=== PATIENT | female | born 1935 | race American Indian/Alaskan Native ===

== ENCOUNTER 2016-07-25 06:42 | Day surgery (SDC) | payer MEDICARE, OTHER ==
[~2016-07-25 06:42] MED LIST: ADRENALIN IR ONE; TETCAINE OD PRN
[2016-07-25] MEDS ORDERED: TETRACAINE 0.5% OU PRN (07:33)
[2016-07-25] MEDS ORDERED: TETRACAINE 0.5% OD PRN (07:34)
--- NOTE | 2016-07-25 07:57 | Anesthesia Day of Surgery ---
Anesthesia Day of Surgery - Day of Surgery Patient Examined: Yes Patient H&P Reviewed: Yes Patient is NPO: Yes Beta Blockers: Yes
--- NOTE | 2016-07-25 07:57 | Anesthesia Consultation ---
Anesthesia Consult and Med Hx Date of service: 07/25/16 - Airway Anesthetic Teeth Evaluation: Partials ROM Head & Neck: Adequate Mental/Hyoid Distance: Adequate Mallampati Class: Class III Intubation Access Assessment: Possibly Difficult - Pulmonary Exam CTA: Yes - Cardiac Exam Cardiac Exam: RRR - Pre-Operative Health Status ASA Pre-Surgery Classification: ASA3 Proposed Anesthetic Plan: MAC - Pulmonary Hx Asthma: Yes - Cardiovascular System Hx Hypertension: Yes (FOR 20+ YRS) Hx Heart Murmur: Yes Hx Peripheral Vascular Disease: Yes - Central Nervous System Hx Neuromuscular Disorder: (arthritis - hands and legs) Hx Psychiatric Problems: No - Other Systems Hx Cancer: No
[2016-07-25] MEDS: VIGAMOX OD SCH ×3 (08:05→08:15)
[2016-07-25] MEDS: AK-Dilate OD SCH ×3 (08:05→08:15)
[2016-07-25] MEDS: MYDRIACYL OD SCH ×3 (08:05→08:15)
[2016-07-25] MEDS ORDERED: VERSED ONE (09:01)
[2016-07-25] MEDS ORDERED: SUBLIMAZE ONE (09:01)
[2016-07-25] MEDS ORDERED: ADRENALIN IR ONE (10:03)
--- NOTE | 2016-07-25 10:13 | Short Stay Summary ---
Short Stay Documentation Date of service: 07/25/16 - History H&P: obtained from office - Allergies and Medications Current Medications: Allergies iodine Adverse Reaction (Verified 07/17/16 16:24) Hives soy Adverse Reaction (Verified 07/17/16 16:24) Swelling Sulfa (Sulfonamide Antibiotics) Adverse Reaction (Verified 07/17/16 16:24) Swelling GRAINS Adverse Reaction (Uncoded 07/17/16 16:24) Swelling Home Medications Medication Instructions Recorded Confirmed Last Taken Type Furosemide [Lasix] 1 tab PO DAILY 09/29/13 07/25/16 07/23/16 History Metoprolol Xl [Metoprolol 1 tab PO DAILY 09/29/13 07/25/16 07/25/16 History SUCCINATE ER TAB] [place]-3 Fatty Acids [Fish Oil] 1 cap PO DAILY 09/29/13 07/25/16 07/22/16 History Potassium Chloride [Potassium 1 tab PO DAILY 09/29/13 07/25/16 07/22/16 History Chloride] Ubidecarenone [Coq-10] 1 cap PO DAILY 09/29/13 07/25/16 07/22/16 History ALBUTEROL Inhaler [Proair] 2 puff IH QID PRN 07/02/16 07/17/16 3 Months Ago History Digestive Enzymes Combo No.7 1 each PO QDAY 07/02/16 07/25/16 07/22/16 History [Superior Digestive Enzyme] Losartan/Hydrochlorothiazide 1 each PO QDAY 07/02/16 07/25/16 07/22/16 History [Losartan-Hctz 50-12.5 mg Tab] Active Medications Moxifloxacin HCl (Vigamox) 1 drops OD Q5MIN ZAK Stop: 07/27/16 00:02 Last Admin: 07/25/16 08:15 Dose: 1 drops Phenylephrine HCl (Ak-Dilate) 1 drops OD Q5M ZAK Last Admin: 07/25/16 08:15 Dose: 1 drops Tetracaine HCl (Tetracaine 0.5%) 1 drops OD Q5M PRN PRN Reason: Anesthesia Stop: 07/25/16 16:00 Last Admin: 07/25/16 08:05 Dose: 1 drops Tropicamide (Mydriacyl) 1 drops OD Q5MIN ZAK Stop: 07/27/16 00:02 Last Admin: 07/25/16 08:15 Dose: 1 drops - Brief post op/procedure progress note Date of procedure: 07/25/16 Pre-op diagnosis: cataract right eye Post-op diagnosis: same Procedure: Phacoemulsification with intraocular lens insertion right eye Anesthesia: MAC Surgeon: CHULA AGUIRRE Estimated blood loss: none Pathology: none Condition: stable - Disposition Condition at discharge: Good Disposition: DISCHARGED TO HOME OR SELFCARE - Discharge Diagnoses (1) Cataract Status: Resolved
--- NOTE | 2016-07-25 10:14 | Operative Report ---
Operative Report Operative Report: PATIENT'S NAME: DATE OF : DATE OF SURGERY: 07/25/2016 PREOPERATIVE DIAGNOSIS: Cataract right eye POSTOPERATIVE DIAGNOSIS: Same OPERATIVE PROCEDURE: Phacoemulsification with intraocular lens implantation, right eye SURGEON: Shabana Scott M.D. [employer] SURGEON: Yoselin Lens: AO60 20.0 D ANESTHESIA: Monitored anesthesia care in combination with topical and intracameral anesthesia because of the established specific risk of reflux, arrhythmias, or anxiety attacks associated with ocular manipulation, as well as the difficulty of the waste hand to manage such potentially catastrophic events while simultaneously attempting to complete the surgical procedure and was deemed necessary for the patient's safety to have an Sales Training Representative present during the procedure whenever possible. An Sales Training Representative was utilized to regulate the intravenous sedation of the patient so the patient was cooperative yet not asleep in order for the patient to successfully maintain fixation of the eye on the operating light of the microscope. COMPLICATIONS: [No surgical complications] No blood loss. ALLERGIES: Iodine sulfa slowly PROGNOSIS: Excellent INDICATIONS FOR SURGERY: The patient is undergoing surgery in the hopes of eliminating or improving these visual difficulties. PROCEDURE: After arriving at the surgery center, the patient was given topical anesthetic and dilating drops, as noted in the record. The patient was then taken into the operating room and given more anesthetic drops. The eyelids , lashes, and lid margins were scrubbed with Betadine solution, and the patient was draped. The Nurse Sales Training Representative administered IV sedation and monitored the patient during the procedure. The eye was then fixated with a 0.12, and a stab incision was made in the peripheral clear cornea into the anterior chamber. This was made on my left side. Viscoelastic was next used to fill the anterior chamber. The eye was once again fixated with the 0.12 forceps and a keratome was used make an incision in clear cornea peripherally on my right hand side temporally. The capsule forceps were used to open the central anterior capsule and then make a continuous round capsulotomy. Hydrodissection was carried out utilizing a cannula and balanced salt solution to delineate the cortical material from the capsule and the nucleus from the cortical material. The phaco tip was introduced into the eye and used to remove the anterior cortical material in the area of the capsulotomy. Then the phaco tip was buried into the nucleus, and a chopping instrument was introduced into the eye and used to provide countertraction in the nucleus between this instrument and the phaco tip fracturing the nucleus. This procedure was repeated multiple times, providing multiple small segments of the lens, and then the phaco tip was used to remove each of these segments. An I/A tip was then used to remove the remaining cortex. The anterior chamber was refilled with viscoelastic. An one-piece, acrylic intraocular lens was then placed into an inserting cartridge. The tip of the inserting cartridge was introduced into the keratome incision and into the anterior chamber. The implant was gently advanced through the cartridge and into the eye, where it unfolded, and both haptics were placed in the capsular bag, where it centered nicely and appeared to be well fixated. After placement of the intraocular lens, the I~and~A handpiece was placed back into the eye and used to remove the viscoelastic, including viscoelastic that was behind the optic of the intraocular lens. The anterior chamber was then filled with balanced salt solution, and hydration of the wound was used to cause swelling of the wound and more appropriate watertight closure. When the wound was found to be firm, the patient was asked to comment on how bright the light was. If there was no light perception at all or if the light was substantially dimmer than during the rest of the surgery, the amount of fluid in the eye was decompressed to lower the intraocular pressure until the patient could see the bright light again. This was done to avoid any damage or decreased blood flow to the optic nerve. MEDICATIONS APPLIED AT END OF SURGERY: One drop of Pred Forte and Vigamox The patient was given a shield to wear at night and was instructed not to rub or push on the eye. DISCHARGE SUMMARY: The patient was released in stable condition. The patient and those with the patient were given a written sheet of postoperative instructions and counseling on any abnormal laboratory studies. The patient is to see us tomorrow for follow-up in the office and is to call immediately for any difficulties. Shabana Scott M.D. Date
[2016-07-25] MEDS ORDERED: PRED FORTE 1% OD SCH (11:00)
[2016-07-25 11:29] VITALS: BP 153/81
--- NOTE | 2016-07-25 14:35 | Post Anesthesia Evaluation ---
- Post Anesthesia Evaluation Patient Participated: Yes Airway Patent: Yes Stable Respiratory Function: Yes Temp > 96.8F: Yes Pain Manageable: Yes Adequeate Hydration: Yes Anesthesia Complications: No Block Receding Appropriately: Not Applicable
== END 2016-07-25 11:21 | disposition home or self-care (01) ==
LOC: OR 06:42
DX: H26.9 Unspecified cataract (principal); I25.10 Atherosclerotic heart disease of native coronary artery without angina pectoris; E03.9 Hypothyroidism, unspecified; I11.0 Hypertensive heart disease with heart failure; M13.89 Other specified arthritis, multiple sites; E78.00 Pure hypercholesterolemia, unspecified; J45.909 Unspecified asthma, uncomplicated; K21.9 Gastro-esophageal reflux disease without esophagitis; Z86.010 Personal history of colon polyps; Z90.49 Acquired absence of other specified parts of digestive tract; Z98.42 Cataract extraction status, left eye; Z98.890 Other specified postprocedural states; Z86.79 Personal history of other diseases of the circulatory system
CPT/HCPCS: 66984; J0171; J2250; J3010; V2632

== ENCOUNTER 2017-11-07 08:47 | Outpatient (CLI) | payer MEDICARE, OTHER | END 2017-11-07 08:48 | disposition home or self-care (01) | LOC: LABHHL 08:47 | PROVIDERS: ATTEND Specialist | DX: C50.411 Malignant neoplasm of upper-outer quadrant of right female breast (principal) | CPT/HCPCS: 88305; 88342; 88361 ==

== ENCOUNTER 2017-11-25 10:20 | Outpatient (CLI) | payer MEDICARE, OTHER ==
--- NOTE | 2017-11-26 13:31 | Magnetic Resonance Report ---
BILATERAL BREAST MRI WITHOUT AND WITH CONTRAST: 11/25/17 10:20:00 CLINICAL: Newly diagnosed right breast cancer. Status post right stereotactic needle biopsy on 11/20/17 with a pathologic diagnosis of invasive carcinoma NOS with overall grade 2. COMPARISON:09/10/17 and 10/02/17 mammograms.. TECHNIQUE: Axial 1.0-mm T1 without, axial high resolution 2.0-mm T2 and axial 1.0-mm dynamic Vibrant high-resolution postcontrast T1 fat saturation sequences on a 1.5 Teresa magnet. The examination was performed with an 8 channel dedicated [place] breast coil. Post processing with CAD and subtraction was performed on an [employer] workstation. 20 cc of Multihance was injected for the contrast portion of the exam. Consent was obtained prior to the administration of the contrast. FINDINGS: Right: Minimal background parenchymal enhancement. The known cancer is an irregular enhancing mass at 2 o'clock 7 cm from the nipple measuring 12.4 x 9.2 x 6.4 mm. It demonstrates heterogeneous enhancement with mixed kinetics, 140% peak enhancement and 55% type III washout. A biopsy clip is identified at the margin of the mass. No other mass or suspicious enhancement. No suspicious right axillary or right internal mammary lymph nodes. Left: Minimal background parenchymal enhancement. No mass or suspicious enhancement. No suspicious left axillary or left internal mammary lymph nodes. IMPRESSION: 1. A known 12.4 mm right breast cancer and no additional suspicious lesion of either breast. 2. No suspicious lymph nodes. BI-RADS 6 -- Known Cancer
== END 2017-11-25 10:21 | disposition home or self-care (01) ==
LOC: SPVIMAG 10:20
PROVIDERS: ATTEND Surgery
DX: C50.411 Malignant neoplasm of upper-outer quadrant of right female breast (principal)
CPT/HCPCS: A9577; C8908; 77059

== ENCOUNTER 2017-12-31 06:34 | Day surgery (SDC) | payer MEDICARE, OTHER ==
[2017-12-31] MEDS ORDERED: NACL BACTERIOSTATIC INFILTRATI ONE (06:49)
[2017-12-31] MEDS ORDERED: ANCEF/STERILE WATER 2 GM/20 ML IV NR (07:00)
[2017-12-31] MEDS ORDERED: XYLOCAINE 1% 20 mL INFILTRATI NR (08:00)
[2017-12-31] MEDS ORDERED: LACTATED RINGERS 1,000 ML ONE (08:01)
[2017-12-31] MEDS ORDERED: DILAUDID ONE (08:21)
[2017-12-31] MEDS ORDERED: SUBLIMAZE ONE ×2 (08:21→08:45)
[2017-12-31] MEDS ORDERED: DIPRIVAN 10 MG/ML IV ONE (08:22)
[2017-12-31] MEDS ORDERED: ZEMURON IV ONE (08:24)
[2017-12-31] MEDS ORDERED: NACL P/F VIAL (10 ML) 10 ML ONE (08:24)
[2017-12-31] MEDS ORDERED: ARTIFICIAL TEARS OPHTH OINT ONE (08:27)
[2017-12-31] MEDS ORDERED: XYLOCAINE MPF 2% ONE (08:27)
[2017-12-31] MEDS ORDERED: DECADRON ONE ×2 (08:30→10:19)
[2017-12-31] MEDS ORDERED: NAROPIN O.5% ONE (08:44)
[2017-12-31] MEDS ORDERED: VERSED ONE (08:44)
[2017-12-31] MEDS ORDERED: LACTATED RINGERS 1,000 ML IV SCH (09:00)
[2017-12-31] MEDS ORDERED: WATER FOR IRRIG STERILE IR ONE (09:35)
--- NOTE | 2017-12-31 09:45 | Operative Report ---
Operative Report Operative Report: Date of Service: December 31, 2017 Preoperative diagnosis: Right breast cancer of the upper inner quadrant Postoperative diagnosis: Same Procedure: Right needle localization partial mastectomy of the upper inner quadrant and SLNB Surgeon: Rosie Bunch MD Dye Tub Tender: GHAZALA Mckeon Anesthesia: General Findings: Right wire and clip present within radiograph specimen; x3 SLNs Complications: None EBL: Minimal Disposition: PACU in good condition Indications for operative procedure: This is an 82 year old lady with newly diagnosed right breast cancer of the upper inner quadrant, Stage I [id number] ER/ MA positive. Recommendations are to proceed with breast conservation. Genetic testing negative for any significant gene mutation. Patient wished to proceed with the above procedure. Procedure in detail: The patient was taken to radiology for wire placement for localization known area of cancer. Patient was then taken to the operating room. Gen. anesthesia was administered. The right nipple was injected with radioisotope. The right breast and axilla were prepped and draped in the normal sterile operative fashion. The wire was identified. Timeout was performed. Gamma probe was inserted into the axilla. The area of hot spot was identified. A right axillary incision was made with a 15 blade knife with dissection taken down to the subcutaneous tissues. The axillary fascia was opened with the Bovie cautery. 3 SLNS were identified. All remaining counts were less than 10% of the highest count. Lymph nodes were sent to pathology for permanent processing. Hemostasis was obtained in the left axillary cavity. Axillary cavity was appropriately irrigated and suctioned. Hemostasis was noted. Axillary fascia was approximated and closed using interrupted 3-0 Vicryl and the skin brought together and closed using a running 4-0 Monocryl followed by skin affix. Attention was then taken towards the right breast. An upper inner quadrant breast incision was made with a 15 blade knife and dissection taken down to subcutaneous tissues. First began raising of the lateral flap with removal of the wire from the skin with dissection take down to the pectoralis muscle, followed by raising of the medial flap, superior flap and inferior flap with all flaps taken down to the pectoralis muscle. The breast area of concern was appropriately removed posteriorly from the pectoralis muscle with the aid of the Bovie cautery. The wire was not encountered. Specimen was marked and then sent to pathology and radiology; radiograph specimen with wire and clip present. Breast cavity was irrigated and hemostasis was obtained. The posterior deep breast tissues were approximated and closed using interrupted 3-0 Vicryl. The subcutaneous tissues were approximated and closed using interrupted 3-0 Vicryl followed by closing of the skin with a running 4-0 Monocryl and skin affix. The patient tolerated surgery very well and she was awaken from anesthesia without any complication and transported to PACU in good condition.
--- NOTE | 2017-12-31 09:48 | Short Stay Summary ---
Short Stay Documentation Date of service: 12/31/17 - History H&P: obtained from office - Allergies and Medications Current Medications: Allergies codeine Allergy (Verified 12/29/17 14:46) Swelling iodine Adverse Reaction (Verified 12/29/17 14:46) Hives soy Adverse Reaction (Verified 12/29/17 14:46) Swelling Sulfa (Sulfonamide Antibiotics) Adverse Reaction (Verified 12/29/17 14:46) Swelling GRAINS Adverse Reaction (Uncoded 07/17/16 16:24) Swelling Home Medications Medication Instructions Recorded Confirmed Last Taken Type Potassium Chloride 1 tab PO DAILY 09/29/13 12/31/17 07/22/16 History RX: Metoprolol Xl [Metoprolol 1 tab PO DAILY 09/29/13 12/31/17 12/30/17 12:00 History SUCCINATE ER TAB] RX: [place]-3 Fatty Acids [Fish Oil] 1 cap PO DAILY 09/29/13 12/31/17 12/30/17 12: 00 History Ubidecarenone [Coq-10] 1 cap PO DAILY 09/29/13 12/31/17 12/30/17 12:00 History ALBUTEROL Inhaler [Proair] 2 puff IH QID PRN 07/02/16 12/31/17 3 Months Ago History ~04/04/16 Digestive Enzymes Combo No.7 1 each PO QDAY 07/02/16 12/31/17 12/30/17 12:00 History [Superior Digestive Enzyme] Losartan/Hydrochlorothiazide 1 each PO QDAY 07/02/16 12/31/17 12/30/17 12:00 History [Losartan-Hctz 50-12.5 mg Tab] Active Medications Cefazolin Sodium (Ancef/Sterile Water 2 Gm/20 Ml) 2 gm IV PREOP NR Stop: 12/31/17 23:45 Lactated Ringer's (Lactated Ringers) 1,000 mls @ 75 mls/hr IV DIRECT ZAK Last Admin: 12/31/17 08:30 Dose: 75 mls/hr Lidocaine (Xylocaine 1% 20 Ml) 20 ml INFILTRATI ONCE NR Stop: 12/31/17 20:00 - Brief post op/procedure progress note Date of procedure: 12/31/17 Pre-op diagnosis: Right breast cancer of the upper inner quadrant Post-op diagnosis: same Procedure: Right needle localization partial mastectomy and SLNB Anesthesia: GETA Findings: Wire and clip present within radiograph specimen; x SLNs Surgeon: MADELINE BRANDON High Pressure Cleaner: SANDRA SON Estimated blood loss: minimal Pathology: list (right partial mastectomy; x3 SLNs) Specimen disposition: to lab Condition: stable - Disposition Condition at discharge: Good Disposition: DC-01 TO HOME OR SELFCARE Short Stay Discharge Plan Activity: other (no heavy lifting) Diet: regular Wound: other (keep incisions clean and dry; may shower in 24 hours; no baths, pools or lakes; wear breast binder for 48 hours and may wear supportive sports bra) Follow up with: RAMON MCKENNA MD [Primary Care Provider] - 7 Days MADELINE BRANDON MD [Staff Physician] - 7 Days Prescriptions: traMADol [Ultram 50 MG tab] 50 mg PO Q6HR PRN #30 tablet PRN Reason: Pain
[2017-12-31] MEDS ORDERED: TORADOL IV PRN (10:00)
[2017-12-31] MEDS ORDERED: ZOFRAN IV PRN (10:00)
--- NOTE | 2017-12-31 10:00 | Anesthesia Consultation ---
Anesthesia Consult and Med Hx Date of service: 12/31/17 - Airway Anesthetic Teeth Evaluation: Good ROM Head & Neck: Adequate Mental/Hyoid Distance: Adequate Mallampati Class: Class I Intubation Access Assessment: Good - Pulmonary Exam CTA: Yes - Cardiac Exam Cardiac Exam: RRR - Pre-Operative Health Status ASA Pre-Surgery Classification: ASA3 Proposed Anesthetic Plan: General - Pulmonary Hx Asthma: Yes - Cardiovascular System Hx Hypertension: Yes (2 YEARS) Hx Heart Murmur: Yes Hx Peripheral Vascular Disease: Yes - Central Nervous System Hx Neuromuscular Disorder: (arthritis - hands and legs) Hx Psychiatric Problems: No - Other Systems Hx Alcohol Use: No Hx Substance Use: No Hx Cancer: Yes
--- NOTE | 2017-12-31 10:00 | Anesthesia Day of Surgery ---
Anesthesia Day of Surgery - Day of Surgery Patient Examined: Yes Patient H&P Reviewed: Yes Patient is NPO: Yes
--- NOTE | 2017-12-31 10:22 | Mammography Report ---
NEEDLE LOCALIZATION AND HOOKWIRE PLACEMENT RIGHT BREAST:12/31/17 CLINICAL: Right breast cancer. COMPARISON: 11/20/17 FINDINGS: Using mammographic guidance, 1% lidocaine local anesthesia and sterile technique, a 7.5-cm Rush hookwire with a needle was placed from a CC from above approach to localize the known cancer with a localizer clip. A lateral image confirmed satisfactory deployment of the hookwire and the needle was removed. The patient tolerated the procedure well and there were no apparent complications. IMPRESSION: Uncomplicated hookwire placement right breast.
--- NOTE | 2017-12-31 12:01 | Mammography Report ---
SPECIMEN RADIOGRAPH RIGHT BREAST: 12/31/17 CLINICAL: Surgical excision of a known cancer with a localizer clip. FINDINGS: The targeted mass, localizer clip and hookwire are identified within the specimen. IMPRESSION: Excision of the targeted lesion.
[2017-12-31] MEDS ORDERED: ZOFRAN ONE (12:08)
[2017-12-31] MEDS: APRESOLINE IV PRN ×2 (12:49→13:32)
[2017-12-31] MEDS ORDERED: NEO SYNEPHRINE/NS Syringe(OR USE) IV ONE (12:54)
[2017-12-31] MEDS ORDERED: ROBINUL ONE (12:54)
[2017-12-31] MEDS: DILAUDID IV PRN ×3 (13:05→13:25)
[2017-12-31] MEDS ORDERED: ULTRAM PO PRN (13:39)
--- NOTE | 2017-12-31 17:01 | Post Anesthesia Evaluation ---
- Post Anesthesia Evaluation Patient Participated: Yes Airway Patent: Yes Stable Respiratory Function: Yes Nausea/Vomiting: No Temp > 96.8F: Yes Pain Manageable: Yes Adequeate Hydration: Yes Anesthesia Complications: No Block Receding Appropriately: Not Applicable Patient on Ventilator: No
[2017-12-31 17:51] VITALS: BP 156/83
== END 2017-12-31 15:38 | disposition home or self-care (01) ==
LOC: OR 06:34
PROVIDERS: ATTEND Surgery
DX: C50.211 Malignant neoplasm of upper-inner quadrant of right female breast (principal); I10 Essential (primary) hypertension; I73.9 Peripheral vascular disease, unspecified; M19.90 Unspecified osteoarthritis, unspecified site; E89.0 Postprocedural hypothyroidism; Z80.3 Family history of malignant neoplasm of breast; Z88.2 Allergy status to sulfonamides; Z88.5 Allergy status to narcotic agent; Z91.041 Radiographic dye allergy status; Z91.018 Allergy to other foods
CPT/HCPCS: 19281; 19301; 38525; 64450; 76098; 78800; 88307; 88333; 88342; A9541; J0360; J0690; J1100; J1170; J1885; J2250; J2370; J2405; J2704; J2795; J3010; J7120

== ENCOUNTER 2018-09-26 16:15 | Inpatient (IN) | payer MEDICARE, OTHER ==
--- NOTE | 2018-09-26 16:32 | Emergency Department Report ---
Chief Complaint: Dizziness Stated Complaint: DIZZY X2DAYS/HYPERTENSION Time Seen by Provider: 09/26/18 16:29 - HPI History of Present Illness: pt c/o dizziness started two days ago pt states it got worse yesterday room spinning feels off balance worse with head movements no N/V/D been diagnosed with vertigo previously no fever, urinary sx BP elevated in triage 181/95 MSE screening note: Focused history and physical exam performed. Due to findings the following was ordered: CT head, labs, EKG ED Disposition for MSE Condition: Stable
[2018-09-26] MEDS ORDERED: ANTIVERT PO ONE (17:19)
[2018-09-26] MEDS ORDERED: CATAPRES PO ONE (17:31)
--- NOTE | 2018-09-26 17:35 | Emergency Department Report ---
HPI - General Chief Complaint: Dizziness Time Seen by Provider: 09/26/18 16:29 - HPI HPI: Room 24 The patient is an 82-year-old female presenting with a chief complaint of dizziness. The patient states she's had dizziness whenever she stands up for the past 3 days. Patient states it feels as though the room was spinning but she cannot recall which direction. Patient denies headache nausea vomiting. Patient denies any recent trauma, fever or pain of any type. The patient states she was diagnosed with vertigo approximately 4-5 years ago and has a prescription for meclizine that was filled May 2018. Location: [See above] Duration: 3 days Quality: Vertigo Severity: Moderate Modifying factors: [see above] Context: [see above] Mode of transportation: [not driving] ED Past Medical Hx - Past Medical History Hx Hypertension: Yes (2 YEARS) Hx Congestive Heart Failure: Yes (IN 1984) Hx Deep Vein Thrombosis: Yes (RIGHT LEG IN 2012) Hx GERD: Yes Hx Arthritis: Yes Hx Asthma: Yes - Surgical History Hx Cholecystectomy: Yes Hx Breast Surgery: Yes (LEFT CYST REMOVAL AND AXILLARY) - Family History Family history: no significant - Social History Smoking Status: Never Smoker Substance Use Type: None - Medications Home Medications: Home Medications Medication Instructions Recorded Confirmed Last Taken Type Metoprolol Xl [Metoprolol 1 tab PO DAILY 09/29/13 12/31/17 12/30/17 12:00 History SUCCINATE ER TAB] [place]-3 Fatty Acids [Fish Oil] 1 cap PO DAILY 09/29/13 12/31/17 12/30/17 12:00 History Potassium Chloride 1 tab PO DAILY 09/29/13 12/31/17 07/22/16 History Ubidecarenone [Coq-10] 1 cap PO DAILY 09/29/13 12/31/17 12/30/17 12:00 History ALBUTEROL Inhaler (OR & NICU) 2 puff IH QID PRN 07/02/16 12/31/17 3 Months Ago History [Proair] ~04/04/16 Digestive Enzymes Combo No.7 1 each PO QDAY 07/02/16 12/31/17 12/30/17 12:00 History [Superior Digestive Enzyme] Losartan/Hydrochlorothiazide 1 each PO QDAY 07/02/16 12/31/17 12/30/17 12:00 History [Losartan-Hctz 50-12.5 mg Tab] traMADol [Ultram 50 MG tab] 50 mg PO Q6HR PRN #30 tablet 12/31/17 Unknown Rx ED Review of Systems ROS: Stated complaint: DIZZY X2DAYS/HYPERTENSION Other details as noted in HPI Constitutional: denies: fever Eyes: denies: eye pain ENT: denies: throat pain Respiratory: no symptoms reported Cardiovascular: denies: chest pain Endocrine: no symptoms reported Gastrointestinal: denies: abdominal pain, nausea Genitourinary: denies: dysuria Musculoskeletal: denies: back pain Neurological: vertigo. denies: headache Physical Exam - Physical Exam Vital Signs: Vital Signs 09/26/18 16:30 Temperature 98 F Pulse Rate 84 Respiratory 20 Rate Blood Pressure 181/95 O2 Sat by Pulse 97 Oximetry Physical Exam: GENERAL: The patient is well-developed well-nourished female lying on stretcher not appearing to be in acute distress. [] HEENT: Normocephalic. Atraumatic. Extraocular motions are intact. Patient has moist mucous membranes. No nystagmus noted NECK: Supple. No meningitic signs are noted. Trachea midline CHEST/LUNGS: Clear to auscultation. There is no respiratory distress noted. HEART/CARDIOVASCULAR: Regular. There is no tachycardia. There is no gallop rub or murmur. ABDOMEN: Abdomen is soft, nontender. Patient has normal bowel sounds. There is no abdominal distention. SKIN: There is no rash. There is no edema. There is no diaphoresis. NEURO: The patient is awake, alert, and oriented. The patient is cooperative. The patient has no focal neurologic deficits. The patient has normal speech. Cranial nerves II through XII grossly intact, no drift. No dysmetria noted with [id number]-ka-hhyy bilaterally MUSCULOSKELETAL: There is no evidence of acute injury. ED Course Vital Signs 09/26/18 16:30 Temperature 98 F Pulse Rate 84 Respiratory 20 Rate Blood Pressure 181/95 O2 Sat by Pulse 97 Oximetry - Reevaluation(s) Reevaluation #1: 09/26/18 19:05 Patient unable to ambulate from bed to exam room door complaining of severe dizziness. Will admit the patient to the hospital for further evaluation ED Medical Decision Making - Lab Data Result diagrams: 09/26/18 17:08 09/26/18 17:08 Laboratory Tests 09/26/18 09/26/18 09/26/18 17:08 17:08 17:08 WBC 5.3 RBC 4.30 Hgb 13.4 Hct 38.3 MCV 89 MCH 31 MCHC 35 H RDW 13.4 Plt Count 251 PT 13.0 INR 0.93 APTT 20.0 L Sodium 140 Potassium 4.2 Chloride 102.9 Carbon Dioxide 25 Anion Gap 16 BUN 10 Creatinine 0.7 Estimated GFR > 60 BUN/Creatinine Ratio 14 Glucose 97 Calcium 9.6 Total Bilirubin 0.50 AST 14 ALT 6 L Alkaline Phosphatase 50 Troponin T < 0.010 Total Protein 7.6 Albumin 4.1 Albumin/Globulin Ratio 1.2 - EKG Data -: EKG Interpreted by [place] EKG shows normal: sinus rhythm Rate: normal - EKG Data When compared to previous EKG there are: previous EKG unavailable Interpretation: nonspecific ST-T wave ilia (T-wave inversion in lead aVL) - Radiology Data Radiology results: report reviewed (CT head), image reviewed (CT head) [place] [address] Cat Scan Report Signed Patient: HUBERT CARR MR#: [id number] : 1935 Acct:[id number] Age/Sex: 82 / F ADM Date: 09/26/18 Loc: ED Attending Dr: Ordering Physician: GHAZALA ROUSSEAU Date of Service: 09/26/18 Procedure(s): CT head/brain wo con Accession Number(s): [id number] cc: GHAZALA ROUSSEAU PROCEDURE: CT HEAD/BRAIN WO CON TECHNIQUE: Axial CT with contrast HISTORY: dizziness COMPARISONS: None FINDINGS: No intracranial hemorrhage, mass effect or hydrocephalus. Mild cerebral volume loss. Areas of mild white matter hypoattenuation are present most commonly associated with chronic ischemic microvascular disease. Atherosclerotic calcifications noted. The calvarium is intact. The imaged paranasal sinuses and mastoids are clear. IMPRESSION: No acute intracranial findings. Mild cerebral volume loss and chronic ischemic microvascular white matter changes. . This document is electronically signed by Cam Chao MD., September 26 2018 05:40:12 PM ET Transcribed By: PAF Dictated By: CAM CHAO MD Electronically Authenticated By: CAM CHAO MD Signed Date/Time: 09/26/18 174 DD/ 08 TD/TT: 09/26/181708 - Differential Diagnosis central vertigo, peripheral vertigo, hypertensive urgency Critical care attestation.: If time is entered above; I have spent that time in minutes in the direct care of this critically ill patient, excluding procedure time. ED Disposition Clinical Impression: Vertigo Disposition: OP ADMIT IP TO THIS HOSP Is pt being admited?: Yes Does the pt Need Aspirin: Yes Condition: Fair Referrals: PRIMARY CARE, [Primary Care Provider] - 3-5 Days Time of Disposition: 19:06 (hospitalist paged (Dr Mcneil))
--- NOTE | 2018-09-26 17:42 | Cat Scan Report ---
PROCEDURE: CT HEAD/BRAIN WO CON TECHNIQUE: Axial CT with contrast HISTORY: dizziness COMPARISONS: None FINDINGS: No intracranial hemorrhage, mass effect or hydrocephalus. Mild cerebral volume loss. Areas of mild white matter hypoattenuation are present most commonly associated with chronic ischemic microvascular disease. Atherosclerotic calcifications noted. The calvarium is intact. The imaged paranasal sinuses and mastoids are clear. IMPRESSION: No acute intracranial findings. Mild cerebral volume loss and chronic ischemic microvascular white matter changes. . This document is electronically signed by Cam Mcgowan MD., September 26 2018 05:40:12 PM ET
[2018-09-26 17:44] LABS: Hematocrit 38.3 % (30.3-42.9); Hemoglobin 13.4 gm/dl (10.1-14.3); Mean Corpuscular HGB Conc 35 % (30-34); Mean Corpuscular Volume 89 fl (79-97); Platelet Count 251 K/mm3 (140-440); Red Cell Distribution Width 13.4 % (13.2-15.2)
[2018-09-26 17:46] LABS: INR 0.93 (0.87-1.13)
[2018-09-26 17:53] LABS: Alanine Aminotransferase 6 units/L (7-56); Albumin 4.1 g/dL (3.9-5); BUN/Creatinine Ratio 14; Blood Urea Nitrogen 10 mg/dL (7-17); Calcium 9.6 mg/dL (8.4-10.2); Hemolysis Index 9
[2018-09-26] MEDS ORDERED: ASPIRIN PO ONE (19:07)
[2018-09-26] MEDS ORDERED: ZOFRAN IV PRN (19:41)
[2018-09-26] MEDS ORDERED: SODIUM CHLORIDE FLUSH SYRINGE 10 ML IV PRN (19:41)
[2018-09-26] MEDS ORDERED: TYLENOL PO PRN (19:41)
[2018-09-26 19:43] LABS: Bacteria,Urine 1+ /HPF (Negative); Bilirubin,Urine NEG (Negative); Blood,Urine NEG (Negative); Color,Urine Yellow (Yellow); Mucus,Urine FEW /HPF; Protein,Urine <15 mg/dL mg/dL (Negative); Urobilinogen,Urine < 2.0 mg/dL (<2.0)
[2018-09-26] MEDS ORDERED: APRESOLINE IV PRN (19:48)
[2018-09-26 20:43] LABS: Total Cells Counted 100
[2018-09-26] MEDS ORDERED: ASPIRIN ONE (20:43)
[2018-09-26 20:44] LABS: Ovalocytes Few; Platelet Estimate Consistent w Auto
[2018-09-26] MEDS ORDERED: VALIUM PO ONE (21:00)
--- NOTE | 2018-09-26 21:41 | History and Physical Report ---
History of Present Illness Date of examination: 09/26/18 Date of admission: 09/26/18 19:41 Chief complaint: Dizziness for the past 3 days And elevated blood pressure History of present illness: Mrs. Iamni Amador is a 82-year-old female presenting with a chief complaint of dizziness. The patient states she's had dizziness whenever she stands up for the past 3 days. Patient feels dizzy when she gets up or turns her head and the dizziness is described as spinning sensation. She denies any fall, loss of consciousness, dysuria. She denies any fever or chills chest pain or shortness of breath. Denies any ear discharge ringing in the ears. She has no history of stroke she denies any history of exertional chest pain palpitations or syncope. Patient denies headache nausea vomiting. Patient denies any recent trauma, The patient states she was diagnosed with vertigo approximately 4-5 years ago . She was also noted to have markedly elevated blood pressure 200 systolic in the ED. Patient is being admitted for further management of her vertigo and hype rtensive urgency Past History Past Medical History: DVT, GERD, hypertension, other (asthma) Past Surgical History: cholecystectomy (thyroid surgery), cataract removal, thyroidectomy Social history: no significant social history Family history: cancer (details not known) Medications and Allergies Allergies Allergy/AdvReac Type Severity Reaction Status Date / Time codeine Allergy Swelling Verified 09/26/18 16:16 iodine AdvReac Hives Verified 09/26/18 16:16 soy AdvReac Swelling Verified 09/26/18 16:16 Sulfa (Sulfonamide AdvReac Swelling Verified 09/26/18 16:16 Antibiotics) GRAINS AdvReac Swelling Uncoded 07/17/16 16:24 Home Medications Medication Instructions Recorded Confirmed Last Taken Type Metoprolol Xl [Metoprolol 1 tab PO DAILY 09/29/13 09/26/18 12/30/17 12:00 Histo ry SUCCINATE ER TAB] [place]-3 Fatty Acids [Fish Oil] 1 cap PO DAILY 09/29/13 09/26/18 12/30/17 12:00 History Potassium Chloride 1 tab PO DAILY 09/29/13 09/26/18 07/22/16 History Ubidecarenone [Coq-10] 1 cap PO DAILY 09/29/13 09/26/18 12/30/17 12:00 History ALBUTEROL Inhaler (OR & NICU) 2 puff IH QID PRN 07/02/16 09/26/18 3 Months Ago History [Proair] ~04/04/16 Digestive Enzymes Combo No.7 1 each PO QDAY 07/02/16 09/26/18 12/30/17 12:00 History [Superior Digestive Enzyme] Losartan/Hydrochlorothiazide 1 each PO QDAY 07/02/16 09/26/18 12/30/17 12:00 History [Losartan-Hctz 50-12.5 mg Tab] traMADol [Ultram 50 MG tab] 50 mg PO Q6HR PRN #30 tablet 12/31/17 09/26/18 Unknown Rx Active Meds: Active Medications Acetaminophen (Tylenol) 650 mg PO Q4H PRN PRN Reason: Pain MILD(1-3)/Fever >100.5/ALEMAN Famotidine (Pepcid) 20 mg PO BID ZAK Heparin Sodium (Porcine) (Heparin) 5,000 unit SUB-Q Q8HR ZAK Hydralazine HCl (Apresoline) 10 mg IV Q6H PRN PRN Reason: Hypertension Losartan Potassium (Cozaar) 100 mg PO DAILY ZAK Meclizine HCl (Antivert) 25 mg PO Q8HR ZAK Metoprolol Succinate (Toprol Xl) 50 mg PO DAILY ZAK Ondansetron HCl (Zofran) 4 mg IV Q8H PRN PRN Reason: Nausea And Vomiting Sodium Chloride (Sodium Chloride Flush Syringe 10 Ml) 10 ml IV BID ZAK Sodium Chloride (Sodium Chloride Flush Syringe 10 Ml) 10 ml IV PRN PRN PRN Reason: LINE FLUSH Review of Systems All systems: negative (12 point review of systems is as stated above in the history of present illness otherwise negative) Exam - Constitutional Vitals: Temp Pulse Resp BP Pulse Ox 97.9 F 73 15 158/81 98 09/26/18 20:18 09/26/18 20:18 09/26/18 20:18 09/26/18 20:18 09/26/18 20:18 General appearance: Present: no acute distress, well-nourished - EENT Eyes: Present: PERRL, EOM intact ENT: hearing intact, clear oral mucosa - Neck Neck: Present: supple, normal ROM. Absent: masses or JVD, carotid bruits - Respiratory Respiratory effort: normal Respiratory: bilateral: CTA - Cardiovascular Rhythm: regular Heart Sounds: Present: S1 & S2 - Extremities Extremities: No edema - Abdominal General gastrointestinal: Present: soft, non-tender. Absent: hepatomegaly, splenomegaly Female genitourinary: Present: deferred - Rectal Rectal Exam: deferred - Integumentary Integumentary: Present: clear - Musculoskeletal Musculoskeletal: strength equal bilaterally - Psychiatric Psychiatric: appropriate mood/affect - Neurologic Neurologic: no focal deficits, other (there is no horizontal or vertical nystagmus,) Results - Labs CBC & Chem 7: 09/26/18 17:08 09/26/18 17:08 Labs: Abnormal lab results 09/26/18 09/26/18 09/26/18 Range/Units 17:08 17:08 17:08 MCHC 35 H (30-34) % Lymphocytes % (Manual) 43.0 H (13.4-35.0) % APTT 20.0 L (24.2-36.6) Sec. ALT 6 L (7-56) units/L Assessment and Plan - Patient Problems (1) Benign positional vertigo Current Visit: Yes Status: Acute Qualifiers: Laterality: bilateral Qualified Code(s): H81.13 - Benign paroxysmal vertigo, bilateral Plan to address problem: Admit the patient There are no signs or symptoms of TIA or stroke CT of the head reviewed UA normal We'll start the patient on meclizine Please consult neurology in a.m. (2) Hypertensive urgency Current Visit: Yes Status: Acute Plan to address problem: Home medications and will start the patient on IV hydralazine as needed (3) History of gastroesophageal reflux (GERD) Current Visit: Yes Status: Chronic Plan to address problem: We will start the patient on oral H2 blockers
[2018-09-26] MEDS: HEPARIN SUB-Q SCH (22:56)
[2018-09-26] MEDS: ANTIVERT PO SCH (22:56)
[2018-09-26] MEDS: PEPCID PO SCH (22:56)
[2018-09-26] MEDS: SODIUM CHLORIDE FLUSH SYRINGE 10 ML IV SCH (23:10)
[2018-09-27] MEDS: HEPARIN SUB-Q SCH ×2 (05:49→13:31)
[2018-09-27] MEDS: ANTIVERT PO SCH ×2 (05:50→13:31)
[2018-09-27 08:47] LABS: BUN/Creatinine Ratio 13; Blood Urea Nitrogen 9 mg/dL (7-17); Calcium 9.3 mg/dL (8.4-10.2); Hemolysis Index 1
[2018-09-27] MEDS: COZAAR PO SCH (10:09)
[2018-09-27] MEDS: SODIUM CHLORIDE FLUSH SYRINGE 10 ML IV SCH (10:10)
[2018-09-27] MEDS: PEPCID PO SCH (10:10)
[2018-09-27] MEDS: TOPROL XL PO SCH (10:10)
[2018-09-27] MEDS ORDERED: ULTRAM PO PRN (16:23)
--- NOTE | 2018-09-27 16:23 | Progress Note ---
Assessment and Plan Assessment and plan: Hypertensive urgency. BP improving Resume home meds Dizziness. Etiology unclear Will get MRI Brain to r/o structural abnormality History of breast cancer Full code status Discussed with patient and daughter at bedside. History Interval history: Dizziness Elevated BP Hospitalist Physical - Physical exam Narrative exam: GEN: Not in acute distress, sitting up in bed, Obese HEENT: Normocephalic, atraumatic, Neck: supple, No JVD Heart:S1 and S2 reg, no murmurs Lungs: Clear to auscultation, no crackles, no wheeze Abd:soft, non tender, non distended, normal bowel sounds Ext: Trace bilat edema, no clubbing, no cyanosis Neuro:Awake,alert,oriented X 3, no focal signs Psych: normal mood - Constitutional Vitals: Temp Pulse Resp BP Pulse Ox 97.6 F 54 L 17 131/74 98 09/27/18 11:48 09/27/18 11:51 09/27/18 11:48 09/27/18 11:48 09/27/18 11:48 General appearance: Present: no acute distress, obese Results - Labs CBC & Chem 7: 09/26/18 17:08 09/27/18 07:00 Labs: Laboratory Last Values WBC 5.3 K/mm3 (4.5-11.0) 09/26/18 17:08 RBC 4.30 M/mm3 (3.65-5.03) 09/26/18 17:08 Hgb 13.4 gm/dl (10.1-14.3) 09/26/18 17:08 Hct 38.3 % (30.3-42.9) 09/26/18 17:08 MCV 89 fl (79-97) 09/26/18 17:08 MCH 31 pg (28-32) 09/26/18 17:08 MCHC 35 % (30-34) H 09/26/18 17:08 RDW 13.4 % (13.2-15.2) 09/26/18 17:08 Plt Count 251 K/mm3 (140-440) 09/26/18 17:08 Add Manual Diff Complete 09/26/18 17:08 Total Counted 100 09/26/18 17:08 Seg Neuts % (Manual) 48.0 % (40.0-70.0) 09/26/18 17:08 Band Neutrophils % 0 % 09/26/18 17:08 Lymphocytes % (Manual) 43.0 % (13.4-35.0) H 09/26/18 17:08 Reactive Lymphs % (Man) 0 % 09/26/18 17:08 Monocytes % (Manual) 5.0 % (0.0-7.3) 09/26/18 17:08 Eosinophils % (Manual) 3.0 % (0.0-4.3) 09/26/18 17:08 Basophils % (Manual) 1.0 % (0.0-1.8) 09/26/18 17:08 Metamyelocytes % 0 % 09/26/18 17:08 Myelocytes % 0 % 09/26/18 17:08 Promyelocytes % 0 % 09/26/18 17:08 Blast Cells % 0 % 09/26/18 17:08 Nucleated RBC % Not Reportable 09/26/18 17:08 Seg Neutrophils # Man 2.5 K/mm3 (1.8-7.7) 09/26/18 17:08 Band Neutrophils # 0.0 K/mm3 09/26/18 17:08 Lymphocytes # (Manual) 2.3 K/mm3 (1.2-5.4) 09/26/18 17:08 Abs React Lymphs (Man) 0.0 K/mm3 09/26/18 17:08 Monocytes # (Manual) 0.3 K/mm3 (0.0-0.8) 09/26/18 17:08 Eosinophils # (Manual) 0.2 K/mm3 (0.0-0.4) 09/26/18 17:08 Basophils # (Manual) 0.1 K/mm3 (0.0-0.1) 09/26/18 17:08 Metamyelocytes # 0.0 K/mm3 09/26/18 17:08 Myelocytes # 0.0 K/mm3 09/26/18 17:08 Promyelocytes # 0.0 K/mm3 09/26/18 17:08 Blast Cells # 0.0 K/mm3 09/26/18 17:08 WBC Morphology Not Reportable 09/26/18 17:08 Hypersegmented Neuts Not Reportable 09/26/18 17:08 Hyposegmented Neuts Not Reportable 09/26/18 17:08 Hypogranular Neuts Not Reportable 09/26/18 17:08 Smudge Cells Not Reportable 09/26/18 17:08 Toxic Granulation Not Reportable 09/26/18 17:08 Toxic Vacuolation Not Reportable 09/26/18 17:08 Dohle Bodies Not Reportable 09/26/18 17:08 Pelger-Huet Anomaly Not Reportable 09/26/18 17:08 Loyd Rods Not Reportable 09/26/18 17:08 Platelet Estimate Consistent w auto 09/26/18 17:08 Clumped Platelets Not Reportable 09/26/18 17:08 Plt Clumps, EDTA Not Reportable 09/26/18 17:08 Large Platelets Not Reportable 09/26/18 17:08 Giant Platelets Not Reportable 09/26/18 17:08 Platelet Satelliting Not Reportable 09/26/18 17:08 Plt Morphology Comment Not Reportable 09/26/18 17:08 RBC Morphology Not Reportable 09/26/18 17:08 Dimorphic RBCs Not Reportable 09/26/18 17:08 Polychromasia Not Reportable 09/26/18 17:08 Hypochromasia Not Reportable 09/26/18 17:08 Poikilocytosis Not Reportable 09/26/18 17:08 Anisocytosis Not Reportable 09/26/18 17:08 Microcytosis Not Reportable 09/26/18 17:08 Macrocytosis Not Reportable 09/26/18 17:08 Spherocytes Not Reportable 09/26/18 17:08 Pappenheimer Bodies Not Reportable 09/26/18 17:08 Sickle Cells Not Reportable 09/26/18 17:08 Target Cells Not Reportable 09/26/18 17:08 Tear Drop Cells Not Reportable 09/26/18 17:08 Ovalocytes Few 09/26/18 17:08 Helmet Cells Not Reportable 09/26/18 17:08 [place] Bodies Not Reportable 09/26/18 17:08 [place] Rings Not Reportable 09/26/18 17:08 [place] Cells Not Reportable 09/26/18 17:08 Bite Cells Not Reportable 09/26/18 17:08 Crenated Cell Not Reportable 09/26/18 17:08 Elliptocytes Not Reportable 09/26/18 17:08 Acanthocytes (Spur) Not Reportable 09/26/18 17:08 Rouleaux Not Reportable 09/26/18 17:08 Hemoglobin C Crystals Not Reportable 09/26/18 17:08 Schistocytes Not Reportable 09/26/18 17:08 Malaria parasites Not Reportable 09/26/18 17:08 [place] Bodies Not Reportable 09/26/18 17:08 Hem Pathologist Commnt No 09/26/18 17:08 PT 13.0 Sec. (12.2-14.9) 09/26/18 17:08 INR 0.93 (0.87-1.13) 09/26/18 17:08 APTT 20.0 Sec. (24.2-36.6) L 09/26/18 17:08 Sodium 140 mmol/L (137-145) 09/27/18 07:00 Potassium 3.5 mmol/L (3.6-5.0) L 09/27/18 07:00 Chloride 105.8 mmol/L (98-107) 09/27/18 07:00 Carbon Dioxide 24 mmol/L (22-30) 09/27/18 07:00 Anion Gap 14 mmol/L 09/27/18 07:00 BUN 9 mg/dL (7-17) 09/27/18 07:00 Creatinine 0.7 mg/dL (0.7-1.2) 09/27/18 07:00 Estimated GFR > 60 ml/min 09/27/18 07:00 BUN/Creatinine Ratio 13 % 09/27/18 07:00 Glucose 108 mg/dL (65-100) H 09/27/18 07:00 Calcium 9.3 mg/dL (8.4-10.2) 09/27/18 07:00 Total Bilirubin 0.50 mg/dL (0.1-1.2) 09/26/18 17:08 AST 14 units/L (5-40) 09/26/18 17:08 ALT 6 units/L (7-56) L 09/26/18 17:08 Alkaline Phosphatase 50 units/L (35-129) 09/26/18 17:08 Troponin T < 0.010 ng/mL (0.00-0.029) 09/26/18 17:08 Total Protein 7.6 g/dL (6.3-8.2) 09/26/18 17:08 Albumin 4.1 g/dL (3.9-5) 09/26/18 17:08 Albumin/Globulin Ratio 1.2 % 09/26/18 17:08 Urine Color Yellow (Yellow) 09/26/18 16:32 Urine Turbidity Clear (Clear) 09/26/18 16:32 Urine pH 7.0 (5.0-7.0) 09/26/18 16:32 Ur Specific [place] 1.009 (1.003-1.030) 09/26/18 16:32 Urine Protein <15 mg/dl mg/dL (Negative) 09/26/18 16:32 Urine Glucose (UA) Neg mg/dL (Negative) 09/26/18 16:32 Urine Ketones Neg mg/dL (Negative) 09/26/18 16:32 Urine Blood Neg (Negative) 09/26/18 16:32 Urine Nitrite Neg (Negative) 09/26/18 16:32 Urine Bilirubin Neg (Negative) 09/26/18 16:32 Urine Urobilinogen < 2.0 mg/dL (<2.0) 09/26/18 16:32 Ur Leukocyte Esterase Lg (Negative) 09/26/18 16:32 Urine WBC (Auto) 5.0 /HPF (0.0-6.0) 09/26/18 16:32 Urine RBC (Auto) 2.0 /HPF (0.0-6.0) 09/26/18 16:32 U Epithel Cells (Auto) 2.0 /HPF (0-13.0) 09/26/18 16:32 Urine Bacteria (Auto) 1+ /HPF (Negative) 09/26/18 16:32 Urine Mucus Few /HPF 09/26/18 16:32
[2018-09-27] MEDS ORDERED: PRAVACHOL PO SCH (22:00)
[2018-09-27] MEDS ORDERED: NON-FORMULARY (Simvastatin 40 MG) PO SCH (22:00)
[2018-09-28] MEDS: ANTIVERT PO SCH ×3 (00:20→13:47)
[2018-09-28] MEDS: PEPCID PO SCH ×2 (00:20→10:40)
[2018-09-28] MEDS: HEPARIN SUB-Q SCH ×3 (00:20→13:47)
[2018-09-28] MEDS: SODIUM CHLORIDE FLUSH SYRINGE 10 ML IV SCH ×2 (00:21→10:49)
[2018-09-28] MEDS ORDERED: [UNRECOGNIZED DRUG - OTHER] PO SCH (10:00)
[2018-09-28] MEDS ORDERED: FISH OIL PO SCH (10:00)
[2018-09-28] MEDS ORDERED: OMEGA PO SCH (10:00)
[2018-09-28] MEDS ORDERED: UBIDECARENONE PO SCH (10:00)
[2018-09-28] MEDS: COZAAR PO SCH (10:39)
[2018-09-28] MEDS: TOPROL XL PO SCH (10:40)
--- NOTE | 2018-09-28 15:49 | Magnetic Resonance Report ---
MRI OF THE BRAIN WITHOUT CONTRAST: HISTORY: Dizziness PROCEDURE: Multiplanar, multisequence MR imaging of the brain without IV contrast was performed. FINDINGS: Compared to the CT head dated 09/26/18. MRI also demonstrates mild to moderate diffuse volume loss and chronic ischemic microvascular disease in the white matter. No evidence for acute ischemia, hemorrhage or mass. No chronic infarct or extra-axial fluid collection. The midline structures are central. The basal cisterns are patent. Normal ventricular size. The orbital cavities and sella turcica demonstrate no abnormality. There is mild mucosal thickening throughout the left maxillary sinus. The remaining sinuses are well-aerated. The mastoid air cells are clear. Middle ear contents are unremarkable. IMPRESSION: Volume loss and chronic white matter changes. This is probably within normal limits for this persons age. No acute intracranial process. Chronic left maxillary sinus disease.
--- NOTE | 2018-09-28 15:50 | Magnetic Resonance Report ---
MRA HEAD WITHOUT CONTRAST HISTORY: Dizziness. [id number] imaging with [employer] of the [place] is submitted. The arteries appear widely patent and free of hemodynamically significant stenosis, aneurysm or dissection. IMPRESSION: Unremarkable MRA head.
--- NOTE | 2018-09-28 16:35 | Discharge Summary ---
Providers - Providers Date of Admission: 09/26/18 19:41 Date of discharge: 09/28/18 Attending physician: VERITO DOSHI 09/28/18 09:35 Physical Therapy Evaluation and Treat [CONS] Routine Comment: Reason For Exam: Dizziness. Difficult ambulation Primary care physician: TOBACCO EDUCATOR Hospitalization Condition: Fair Hospital course: Patient is 82 yo with hypertension, she presented with dizziness. She was seen and evaluated in ED. A CT head was done was unremarkable. She was admitted for further evaluation. Orthostatic vitals were unremarkable. Patient was started on empiric Meclizine. MRI Brain did not show any acute pathology. Dizziness improved and patient was discharged home on 09/28/18 Total time of discharge, 33 mins Disposition: DC-01 TO HOME OR SELFCARE - Discharge Diagnoses (1) Benign positional vertigo Status: Acute Qualifiers: Laterality: bilateral Qualified Code(s): H81.13 - Benign paroxysmal vertigo, bilateral (2) Hypertensive urgency Status: Acute (3) History of gastroesophageal reflux (GERD) Status: Chronic (4) Dizziness Status: Acute Core Measure Documentation - Palliative Care Palliative Care/ Comfort Measures: Not Applicable - Core Measures Any of the following diagnoses?: none Exam - Constitutional Vitals: Temp Pulse Resp BP Pulse Ox 98.2 F 72 18 141/71 100 09/28/18 09:13 09/28/18 10:40 09/28/18 09:34 09/28/18 10:40 09/28/18 09:13 Plan Activity: no restrictions Diet: low fat, low cholesterol, low salt Additional Instructions: 1.Follow up with PCP in 1 week. Follow up with: PRIMARY CARE, [Primary Care Provider] - 3-5 Days Prescriptions: Meclizine [Antivert] 25 mg PO TID PRN #20 tablet PRN Reason: dizziness
[2018-09-28 17:21] VITALS: BP 150/75
== END 2018-09-28 19:40 | disposition home or self-care (01) | DRG 305 ==
LOC: ED 16:15 → 4A 19:41
PROVIDERS: ADMIT Internal Medicine; ATTEND Internal Medicine
DX: I16.0 Hypertensive urgency (principal); K21.9 Gastro-esophageal reflux disease without esophagitis; H81.13 Benign paroxysmal vertigo, bilateral; J45.909 Unspecified asthma, uncomplicated; E89.0 Postprocedural hypothyroidism; I11.0 Hypertensive heart disease with heart failure; I50.9 Heart failure, unspecified; M19.90 Unspecified osteoarthritis, unspecified site; Z85.3 Personal history of malignant neoplasm of breast; Z98.49 Cataract extraction status, unspecified eye; Z90.49 Acquired absence of other specified parts of digestive tract; Z86.718 Personal history of other venous thrombosis and embolism; Z80.9 Family history of malignant neoplasm, unspecified; Z88.5 Allergy status to narcotic agent; Z88.2 Allergy status to sulfonamides; Z91.041 Radiographic dye allergy status; Z79.899 Other long term (current) drug therapy
CPT/HCPCS: 36415; 70450; 70544; 70551; 80048; 80053; 81001; 84484; 85007; 85025; 85610; 85730; 93005; 93010; G0378; A9270-GY; J1644

== ENCOUNTER 2021-01-05 15:11 | Emergency (ER) | payer MEDICARE, OTHER ==
[2021-01-05] MEDS ORDERED: KETAMINE 500 MG/5 ML VIAL MDV ONE (15:16)
[2021-01-05] MEDS ORDERED: dilTIAZem 25 MG/5 ML INJ IV ONE (15:35)
[2021-01-05] MEDS ORDERED: SODIUM CHLORIDE 0.9% 1000 ML 1,000 ML IV ONE (15:35)
[2021-01-05] MEDS ORDERED: dilTIAZem 25 MG/5 ML INJ ONE (15:35)
[2021-01-05] MEDS ORDERED: KETAMINE 500 MG/5 ML VIAL MDV IV ONE (15:36)
--- NOTE | 2021-01-05 16:02 | Emergency Department Report ---
ED Neuro Deficit HPI - General Chief Complaint: Arrhythmia/Palpitations Stated Complaint: ALTERED MENTAL STATUS Time Seen by Provider: 01/05/21 15:35 Source: EMS Mode of arrival: Ambulatory Limitations: No Limitations - History of Present Illness Initial Comments: Chief complaint syncope HPI: This is an 85-year-old female with history of hypertension, dementia, RI 20 years ago, breast cancer in remission who presents with confusion, right-sided facial droop and syncope. History obtained from daughters and son in person. Sylvia daughter and reel and rewinder operator [phone] noticed that over the past few days patient has been lethargic "just not like herself. 30 minutes prior to arrival [id number] PM patient came down the stairs. She slumped onto the couch. Daughter noticed that her right facial droop. She had shaking of the right side. She appeared confused. At that time she told her daughter that she had chest pain and "a hard time breathing". She then became unresponsive. She was in and out of consciousness. Daughter noticed drooling. Daughter called [facility] advice line who recommended EMS. EMS on the scene noticed extreme tachycardia 254 bpm. 6 mg of adenosine did not provide any change. EMS cardiac tracings revealed wide-complex tachycardia rate 250 bpm. EMS also noticed right facial droop. Blood sugar 150 according to EMS report Patient has normal speech. She keeps asking "do you know why my leg is itching?" Medications: Hydrochlorothiazide 25 mg Simvastatin 40 mg Losartan hydrochlorothiazide 100-25 mg meloxicam 7.5 mg donepezil 5 mg twice daily Anastrozole 1 mg daily -: Sudden (2:45 AM 30 minutes prior to arrival to the ED) Location: right face Presenting Symptoms: Present: Altered Mental Status History of same: No Severity: severe Quality: weak Improves With: time Worsens With: none On Anticoagulants: No Context: sudden onset Associated Symptoms: confusion, other (Syncope) Treatments Prior to Arrival: other (Adenosine 6 mg) - Related Data Home Medications: Home Medications Medication Instructions Recorded Confirmed Last Taken Metoprolol Xl [Metoprolol 50 mg PO DAILY 09/29/13 09/26/18 12/30/17 12:00 SUCCINATE ER TAB] [place]-3 Fatty Acids [Fish Oil] 1 cap PO DAILY 09/29/13 09/26/18 12/30/17 12:00 Potassium Chloride 10 meq PO DAILY 09/29/13 09/26/18 07/22/16 Ubidecarenone [Coq-10] 1 cap PO DAILY 09/29/13 09/26/18 12/30/17 12:00 Albuterol Mdi (or & Nicu Only) 2 puff IH QID PRN 07/02/16 09/26/18 3 Months Ago [ProAir HFA Inhaler] ~04/04/16 Digestive Enzymes Combo No.7 1 each PO QDAY 07/02/16 09/26/18 12/30/17 12:00 [Superior Digestive Enzyme] Losartan [Cozaar] 100 mg PO QDAY 09/26/18 09/26/18 Unknown Simvastatin (NF) [Zocor TAB] 40 mg PO QHS 09/26/18 09/26/18 Unknown hydroCHLOROthiazide 25 mg PO DAILY 09/26/18 09/26/18 Unknown [Hydrochlorothiazide] Previous Rx's Medication Instructions Recorded Last Taken Type traMADoL [Ultram 50 MG tab] 50 mg PO Q6HR PRN #30 tablet 12/31/17 Unknown Rx Meclizine [Antivert] 25 mg PO TID PRN #20 tablet 09/28/18 Unknown Rx Allergies/Adverse Reactions: Allergies Allergy/AdvReac Type Severity Reaction Status Date / Time codeine Allergy Swelling Verified 09/26/18 16:16 iodine AdvReac Hives Verified 09/26/18 16:16 soy AdvReac Swelling Verified 09/26/18 16:16 Sulfa (Sulfonamide AdvReac Swelling Verified 09/26/18 16:16 Antibiotics) ED Review of Systems ROS: Stated complaint: ALTERED MENTAL STATUS Other details as noted in HPI Comment: Unobtainable due to pts medical conditions (Altered mental status) ED Past Medical Hx - Past Medical History Previous Medical History?: Yes Hx Hypertension: Yes (2 YEARS) Hx Congestive Heart Failure: Yes (IN 1984) Hx Deep Vein Thrombosis: Yes (RIGHT LEG IN 2012) Hx GERD: Yes Hx Arthritis: Yes Hx Asthma: Yes Hx HIV: No - Surgical History Past Surgical History?: Yes Hx Cholecystectomy: Yes Hx Breast Surgery: Yes (LEFT CYST REMOVAL AND AXILLARY) - Social History Smoking Status: Never Smoker - Medications Home Medications: Home Medications Medication Instructions Recorded Confirmed Last Taken Type Metoprolol Xl [Metoprolol 50 mg PO DAILY 09/29/13 09/26/18 12/30/17 12:00 History SUCCINATE ER TAB] [place]-3 Fatty Acids [Fish Oil] 1 cap PO DAILY 09/29/13 09/26/18 12/30/17 12:00 History Potassium Chloride 10 meq PO DAILY 09/29/13 09/26/18 07/22/16 History Ubidecarenone [Coq-10] 1 cap PO DAILY 09/29/13 09/26/18 12/30/17 12:00 History Albuterol Mdi (or & Nicu Only) 2 puff IH QID PRN 07/02/16 09/26/18 3 Months Ago History [ProAir HFA Inhaler] ~04/04/16 Digestive Enzymes Combo No.7 1 each PO QDAY 07/02/16 09/26/18 12/30/17 12:00 History [Superior Digestive Enzyme] traMADoL [Ultram 50 MG tab] 50 mg PO Q6HR PRN #30 tablet 12/31/17 09/26/18 Unknown Rx Losartan [Cozaar] 100 mg PO QDAY 09/26/18 09/26/18 Unknown History Simvastatin (NF) [Zocor TAB] 40 mg PO QHS 09/26/18 09/26/18 Unknown History hydroCHLOROthiazide 25 mg PO DAILY 09/26/18 09/26/18 Unknown History [Hydrochlorothiazide] Meclizine [Antivert] 25 mg PO TID PRN #20 tablet 09/28/18 Unknown Rx ED Neuro Physical Exam - General Limitations: No Limitations General appearance: in no apparent distress, lethargic Suspected Stroke: Yes - Head Head exam: Present: atraumatic, normocephalic - Eye Eye exam: Present: normal appearance - ENT ENT exam: Present: mucous membranes moist - Neck Neck exam: Present: normal inspection, full ROM - Respiratory Respiratory exam: Present: normal lung sounds bilaterally. Absent: respiratory distress, wheezes, rales, rhonchi - Cardiovascular Cardiovascular Exam: Present: regular rate, normal rhythm. Absent: systolic murmur, diastolic murmur, rubs, gallop - GI/Abdominal GI/Abdominal exam: Present: soft, normal bowel sounds. Absent: distended, tenderness, guarding, rebound - Extremities Exam Extremities exam: Present: normal inspection - Back Exam Back exam: Present: normal inspection - Neurological Exam Neurological exam: Present: alert, other (Oriented to name) - NIHSS Assessment Interval: Baseline 1a. Level of Consciousness: arousable/minor stimuli 1b. LOC Questions: answers both correctly 1c. LOC Commands: performs tasks correctly 2. Best Gaze: normal 3. Visual: no visual loss 4. Facial Palsy: minor paralysis 5b. Motor Arm Right: no drift 5a. Motor Arm Left: no drift 6a. Motor Leg Left: amputation/joint fusion 6b. Motor Leg Right: no drift 7. Limb Ataxia: absent 8. Sensory: normal 9. Best Language: no aphasia 10. Dysarthria: normal 11. Extinction/Inattention: no abnormality Total Score: 2 Stroke Severity: Minor Stroke - Psychiatric Psychiatric exam: Present: normal affect, normal mood - Skin Skin exam: Present: warm, dry, intact, normal color. Absent: rash ED Course Vital Signs 01/05/21 01/05/21 01/05/21 15:15 15:35 16:00 Temperature 97.6 F Pulse Rate 242 H 140 H 110 H Respiratory 20 18 Rate Blood Pressure 68/40 110/66 Blood Pressure 90/62 [Right] O2 Sat by Pulse 98 100 Oximetry 01/05/21 01/05/21 01/05/21 16:19 16:33 17:00 Temperature Pulse Rate 120 H 110 H Respiratory 20 18 Rate Blood Pressure 110/66 Blood Pressure 110/64 [Right] O2 Sat by Pulse 98 100 Oximetry - Reevaluation(s) Reevaluation #1: 01/05/21 16:02 I went outside to the ED parking lot to speak with several family members including 2 daughters and 1 granddaughter. Sylvia provided Mrs. Amador's medicine bottles so. Reevaluation #2: 01/05/21 18:13 Patient awake alert no focal neuro deficits. Reevaluation #3: 01/05/21 18:14 Dr. Luiz Chowdary physician called for update. I informed her that troponin pending Reevaluation #4: 01/05/21 18:19 I spoke with 2 daughters by phone specifically Sylvia. I informed them of disposition as well as results from tests. Also provided education of new diagnosis of atrial fibrillation and TIA. I also provided my opinion of the anticipated hospital course at [facility]. Reevaluation #5: 01/05/21 18:37 Repeat troponin 0.041 small delta. I have informed [facility] physician of the results of the CT head and troponin - Moderate Sedation Indications: other (Cardioversion) ASA Class: III Mallampati Airway Score: 1 Preparation: cardiac technologist applied, pulse oximeter, capnometry used, supplemental O2 applied, suction/airway equipment at bedside, IV secured Ketamine: IV Ketamine Dose: 70 Complications: none Patient Tolerated Procedure: well Additional Comments: 70 mg of ketamine given emergently for cardioversion of unstable arrhythmia. Cardioversion 100 J biphasic. Total time of sedation 1525 -1602 - Lab Data Result diagrams: 01/05/21 15:42 01/05/21 15:42 Lab Results 01/05/21 01/05/21 01/05/21 Range/Units 15:42 15:42 15:42 WBC 4.7 (4.5-11.0) K/mm3 RBC 3.63 L (3.65-5.03) M/mm3 Hgb 11.8 (10.1-14.3) gm/dl Hct 34.3 (30.3-42.9) % MCV 95 (79-97) fl MCH 32 (28-32) pg MCHC 34 (30-34) % RDW 13.1 L (13.2-15.2) % Plt Count 145 (140-440) K/mm3 Lymph % (Auto) 32.0 (13.4-35.0) % [place] % (Auto) 4.8 (0.0-7.3) % Eos % (Auto) 3.3 (0.0-4.3) % Baso % (Auto) 1.0 (0.0-1.8) % Lymph # (Auto) 1.5 (1.2-5.4) K/mm3 [place] # (Auto) 0.2 (0.0-0.8) K/mm3 Eos # (Auto) 0.2 (0.0-0.4) K/mm3 Baso # (Auto) 0.0 (0.0-0.1) K/mm3 Seg Neutrophils % 58.9 (40.0-70.0) % Seg Neutrophils # 2.8 (1.8-7.7) K/mm3 PT 15.0 H (12.2-14.9) Sec. INR 1.12 (0.87-1.13) APTT 31.6 (24.2-36.6) Sec. Sodium 143 (137-145) mmol/L Potassium 3.5 L (3.6-5.0) mmol/L Chloride 107.4 H (98-107) mmol/L Carbon Dioxide 21 L (22-30) mmol/L Anion Gap 18 mmol/L BUN 31 H (7-17) mg/dL Creatinine 0.8 (0.6-1.2) mg/dL Estimated GFR > 60 ml/min BUN/Creatinine Ratio 39 % Glucose 185 H (65-100) mg/dL Calcium 9.2 (8.4-10.2) mg/dL Phosphorus (2.5-4.5) mg/dL Magnesium 2.10 (1.7-2.3) mg/dL Total Bilirubin 0.50 (0.1-1.2) mg/dL AST 198 H (5-40) units/L ALT 172 H (7-56) units/L Alkaline Phosphatase 67 (35-129) units/L Troponin T < 0.010 (0.00-0.029) ng/mL NT-Pro-B Natriuret Pep (0-900) pg/mL Total Protein 6.4 (6.3-8.2) g/dL Albumin 3.4 L (3.9-5) g/dL Albumin/Globulin Ratio 1.1 % Triglycerides (2-149) mg/dL Cholesterol (50-199) mg/dL LDL Cholesterol Direct (50-130) mg/dL HDL Cholesterol (40-59) mg/dL Cholesterol/HDL Ratio % 01/05/21 01/05/21 Range/Units 15:42 17:47 WBC (4.5-11.0) K/mm3 RBC (3.65-5.03) M/mm3 Hgb (10.1-14.3) gm/dl Hct (30.3-42.9) % MCV (79-97) fl MCH (28-32) pg MCHC (30-34) % RDW (13.2-15.2) % Plt Count (140-440) K/mm3 Lymph % (Auto) (13.4-35.0) % [place] % (Auto) (0.0-7.3) % Eos % (Auto) (0.0-4.3) % Baso % (Auto) (0.0-1.8) % Lymph # (Auto) (1.2-5.4) K/mm3 [place] # (Auto) (0.0-0.8) K/mm3 Eos # (Auto) (0.0-0.4) K/mm3 Baso # (Auto) (0.0-0.1) K/mm3 Seg Neutrophils % (40.0-70.0) % Seg Neutrophils # (1.8-7.7) K/mm3 PT (12.2-14.9) Sec. INR (0.87-1.13) APTT (24.2-36.6) Sec. Sodium (137-145) mmol/L Potassium (3.6-5.0) mmol/L Chloride (98-107) mmol/L Carbon Dioxide (22-30) mmol/L Anion Gap mmol/L BUN (7-17) mg/dL Creatinine (0.6-1.2) mg/dL Estimated GFR ml/min BUN/Creatinine Ratio % Glucose (65-100) mg/dL Calcium (8.4-10.2) mg/dL Phosphorus 4.60 H (2.5-4.5) mg/dL Magnesium (1.7-2.3) mg/dL Total Bilirubin (0.1-1.2) mg/dL AST (5-40) units/L ALT (7-56) units/L Alkaline Phosphatase (35-129) units/L Troponin T 0.041 H D (0.00-0.029) ng/mL NT-Pro-B Natriuret Pep 175.2 (0-900) pg/mL Total Protein (6.3-8.2) g/dL Albumin (3.9-5) g/dL Albumin/Globulin Ratio % Triglycerides 60 (2-149) mg/dL Cholesterol 133 (50-199) mg/dL LDL Cholesterol Direct 90 (50-130) mg/dL HDL Cholesterol 44 (40-59) mg/dL Cholesterol/HDL Ratio 3.02 % 01/05/21 16:25 EKG obtained 1512 EKG #1 EKG interpreted by me Wide-complex tachycardia 150 bpm rightward axis no ST elevation irregular Repeat EKG obtained 1531 Atrial fibrillation ventricular rate 160 bpm left axis deviation no ST elevation nonspecific T wave pattern - Radiology Data Radiology results: report reviewed Patient Name: HUBERT AMADOR Gender: Female Date of : 1935 Referring Provider: NAYAN CAZARES Organization: [facility] Accession Number: [id number] Requested Date: January 05, 2021 16:37 Report Status: Final Requested Procedure: 1 Procedure Description: CT head/brain wo con Modality: CT Findings Reporting MD: Siddhartha Frey Dictation Time: January 05, 2021 17:00 Leave Coordinator: Not available Rawhide Trimmer Date: CT head/brain wo con INDICATION / CLINICAL INFORMATION: 85 years Female; right facial droop. TECHNIQUE: Routine CT head without contrast. All CT scans at this location are performed using CT dose reduction for ALARA by means of automated exposure control. COMPARISON: MRI-09/28/2018; CT-09/26/2018 FINDINGS: BRAIN / INTRACRANIAL CONTENTS: Small lacunar infarct is seen in the left thalamic region, which is unchanged from prior. Otherwise, no acute hemorrhage, mass effect, midline shift, hydrocephalus, or acute, large territorial infarct. Mild to moderate, diffuse cerebral and cerebellar atrophy. There are [id number] areas of decreased attenuation in the white matter of the cerebral hemispheres. These are nonspecific findings and may be related to microangiopathy (hypertension, diabetes, atherosclerosis), given the patient's age. It might be difficult to evaluate for small areas of ischemia without diffusion imaging by MRI. Mild component of pontine disease suspected. CRANIOCERVICAL JUNCTION: No significant abnormality. ORBITS: No significant abnormality of visualized orbits. SINUSES / MASTOIDS: Significant opacification of the left mastoid region, which is new from prior CT. Calcifications are identified, suggesting a hemorrhagic, fungal, or chronic component of sinus disease ADDITIONAL FINDINGS: Atherosclerotic disease is seen in the anterior and posterior circulation. IMPRESSION: 1. No focal mass, hemorrhage, hydrocephalus, or acute, large territorial infarct. Follow-up with diffusion imaging by MRI, as clinically warranted. Signer Name: Siddhartha Frey MD, III Signed: 01/05/2021 5:00 PM Workstation Name: [employer] Patient Name: HUBERT AMADOR Gender: Female Date of : 1935 Referring Provider: NAYAN CAZARES Organization: [facility] Accession Number: [id number] Requested Date: January 05, 2021 15:37 Report Status: Final Requested Procedure: 1 Procedure Description: XR chest 1V ap Modality: XR Findings Reporting MD: Angelica Pleitez Dictation Time: January 05, 2021 14:59 Leave Coordinator: Not available Rawhide Trimmer Date: CHEST 1 VIEW INDICATION / CLINICAL INFORMATION: arrhythmia. COMPARISON: None available. FINDINGS: SUPPORT DEVICES: None. HEART / MEDIASTINUM: No significant abnormality. LUNGS / PLEURA: Mild pulmonary vascular congestion. No focal pulmonary consolidation. No large pleural effusion. No pneumothorax. ADDITIONAL FINDINGS: No significant additional findings. IMPRESSION: 1. Mild pulmonary vascular congestion. Signer Name: Angelica Pleitez MD Signed: 01/05/2021 2:59 PM Workstation Name: [id number] - Medical Decision Making 1. TIA: Patient had minor facial paralysis and slightly decreased level consciousness. NIH stroke 2. Her neuro exam and level consciousness rapidly improved just prior to cardioversion. tPA not indicated due to resolving symptoms and possible seizure were reported right-sided shaking. 2. Unstable atrial fibrillation: Initial EKG revealed wide complex tachycardia at 250 bpm. Due to hypotension synchronized cardioversion performed with moderate sedation ketamine. After cardioversion, heart rate 150 bpm atrial fibrillation. Diltiazem bolus 15 mg improved heart rate to 90s to 100 bpm. Diltiazem infusion initiated. I spoke with [facility] physician Dr. Baez who was assisted with transfer to [facility]. She has consulted dispatch manager. She understands my concern for TIA. Diltiazem infusion initiated considering anticipated ambulance transport. Accepting physician Dr. Duran. Critical Care Time: Yes Critical care time in (mins) excluding proc time.: 60 Critical care attestation.: If time is entered above; I have spent that time in minutes in the direct care of this critically ill patient, excluding procedure time. 60 minutes of critical care time excluding procedures were used in the care of the patient. I came immediately to the bedside upon patient's arrival. I obtained history from EMS at the bedside. I discussed treatment plan with the nursing team members. I reviewed electronic record. I kept the family members informed. Patient required multiple interventions and reassessments. ED Disposition Clinical Impression: Atrial fibrillation with rapid ventricular response, Acute hypotension, Syncope, cardiogenic, TIA (transient ischemic attack) Disposition: DC/TX-70 ANOTHER TYPE [facility]TH[facility]ARE Is pt being admited?: No Does the pt Need Aspirin: No Condition: Stable Instructions: Syncope (ED) Referrals: PRIMARY CARE,MD [Primary Care Provider] - 3-5 Days
--- NOTE | 2021-01-05 16:03 | XRay Report ---
CHEST 1 VIEW INDICATION / CLINICAL INFORMATION: arrhythmia. COMPARISON: None available. FINDINGS: SUPPORT DEVICES: None. HEART / MEDIASTINUM: No significant abnormality. LUNGS / PLEURA: Mild pulmonary vascular congestion. No focal pulmonary consolidation. No large pleura l effusion. No pneumothorax. ADDITIONAL FINDINGS: No significant additional findings. IMPRESSION: 1. Mild pulmonary vascular congestion. Signer Name: Angelica Pleitez MD Signed: 01/05/2021 3:59 PM Workstation Name: [id number]
[2021-01-05 16:06] LABS: Eosinophils # (Auto) 0.2 K/mm3 (0.0-0.4); Eosinophils % (Auto) 3.3 % (0.0-4.3); Hematocrit 34.3 % (30.3-42.9); Hemoglobin 11.8 gm/dl (10.1-14.3); Lymphocytes # (Auto) 1.5 K/mm3 (1.2-5.4); Mean Corpuscular HGB Conc 34 % (30-34); Mean Corpuscular Volume 95 fl (79-97); Monocytes # (Auto) 0.2 K/mm3 (0.0-0.8); Monocytes % (Auto) 4.8 % (0.0-7.3); Platelet Count 145 K/mm3 (140-440); Red Blood Count 3.63 M/mm3 (3.65-5.03); Red Cell Distribution Width 13.1 % (13.2-15.2)
[2021-01-05 16:16] LABS: INR 1.12 (0.87-1.13)
[2021-01-05 16:17] LABS: Partial Thromboplastin Time 31.6 Sec. (24.2-36.6)
[2021-01-05 16:18] LABS: Alanine Aminotransferase 172 units/L (7-56); Albumin 3.4 g/dL (3.9-5); BUN/Creatinine Ratio 39; Blood Urea Nitrogen 31 mg/dL (7-17); Calcium 9.2 mg/dL (8.4-10.2); Hemolysis Index 5
[2021-01-05] MEDS ORDERED: dilTIAZem/D5W 100 MG/100 ML BAG IV SCH (17:00)
--- NOTE | 2021-01-05 18:05 | Cat Scan Report ---
CT head/brain wo con INDICATION / CLINICAL INFORMATION: 85 years Female; right facial droop. TECHNIQUE: Routine CT head without contrast. All CT scans at this location are performed using CT dos e reduction for ALARA by means of automated exposure control. COMPARISON: MRI-09/28/2018; CT-09/26/2018 FINDINGS: BRAIN / INTRACRANIAL CONTENTS: Small lacunar infarct is seen in the left thalamic region, which is un changed from prior. Otherwise, no acute hemorrhage, mass effect, midline shift, hydrocephalus, or acute, large territori al infarct. Mild to moderate, diffuse cerebral and cerebellar atrophy. There are [id number] areas of decreased attenuation in the white matter of the cerebral hemisph eres. These are nonspecific findings and may be related to microangiopathy (hypertension, diabetes, a therosclerosis), given the patient's age. It might be difficult to evaluate for small areas of ischem ia without diffusion imaging by MRI. Mild component of pontine disease suspected. CRANIOCERVICAL JUNCTION: No significant abnormality. ORBITS: No significant abnormality of visualized orbits. SINUSES / MASTOIDS: Significant opacification of the left mastoid region, which is new from prior CT. Calcifications are identified, suggesting a hemorrhagic, fungal, or chronic component of sinus disea se ADDITIONAL FINDINGS: Atherosclerotic disease is seen in the anterior and posterior circulation. IMPRESSION: 1. No focal mass, hemorrhage, hydrocephalus, or acute, large territorial infarct. Follow-up with diff usion imaging by MRI, as clinically warranted. Signer Name: Siddhartha Frey MD, III Signed: 01/05/2021 6:00 PM Workstation Name: [id number]
[2021-01-05 18:34] LABS: Chol/HDL Ratio 3.02 %
[2021-01-05] MEDS ORDERED: HEPARIN 10,000 UNITS/10 ML VIAL IV ONE (18:54)
[2021-01-05] MEDS ORDERED: HEPARIN/ 0.45% NACL DRIP 25,000 UNIT/500 ML BAG IV SCH (19:00)
[2021-01-05] MEDS ORDERED: HEPARIN 10,000 UNITS/10 ML VIAL IV PRN (19:03)
[2021-01-05 19:27] LABS: INR 1.05 (0.87-1.13); Partial Thromboplastin Time 30.9 Sec. (24.2-36.6)
[2021-01-05] MEDS ORDERED: HYDROmorphone 1 MG/1 ML INJ IV PRN (23:01)
[2021-01-06 01:24] VITALS: BP 137/73
--- NOTE | 2021-01-07 13:06 | Electrocardiograph Report ---
[facility] Test Date: 2021-01-05 Test Time: 15:12:21 Pat Name: HUBERT CARR Department: Room: Gender: F Concierge: BIRGIT : 1935 Requested By: NAYAN CAZARES Order Number: [id number] Reading MD: Derek Dockery Measurements Intervals [place] Rate: 242 P: 0 NV: 264 QRS: 112 QRSD: 163 T: QT: 252 QTc: 506 Interpretive Statements WIDE COMPLEX TACHYCARDIA Likely Ventricular Tachycardia Electronically Signed On 01-07-2021 13:05:44 EDT by Derek Dockery
--- NOTE | 2021-01-10 14:18 | Electrocardiograph Report ---
[facility] Test Date: 2021-01-05 Test Time: 15:31:55 Pat Name: HUBERT CARR Department: Room: Gender: F Human Resources Recruiter: [facility] : 1935 Requested By: NAYAN CAZARES Order Number: [id number] Reading MD: Shona Salguero Measurements Intervals [place] Rate: 158 P: NV: QRS: -34 QRSD: 105 T: 167 QT: 306 QTc: 496 Interpretive Statements Atrial fibrillation with rapid V-rate Repolarization abnormality, prob rate related Compared to ECG 01/05/2021 15:12:21 Ventricular tachycardia no longer present Electronically Signed On 01-10-2021 14:18:19 EDT by Shona Salgueor
== END 2021-01-06 00:05 | disposition other institution (70) ==
LOC: ED 15:11
DX: I48.20 Chronic atrial fibrillation, unspecified (principal); I95.9 Hypotension, unspecified; R57.0 Cardiogenic shock; G45.9 Transient cerebral ischemic attack, unspecified; I11.0 Hypertensive heart disease with heart failure; I50.9 Heart failure, unspecified; E11.9 Type 2 diabetes mellitus without complications; M19.90 Unspecified osteoarthritis, unspecified site; J45.909 Unspecified asthma, uncomplicated; Z90.49 Acquired absence of other specified parts of digestive tract; Z98.890 Other specified postprocedural states; Z79.899 Other long term (current) drug therapy; Z88.2 Allergy status to sulfonamides; Z88.5 Allergy status to narcotic agent; Z88.6 Allergy status to analgesic agent; Z91.018 Allergy to other foods
CPT/HCPCS: 36415; 70450; 71045; 80053; 80061; 83735; 83880; 84100; 84484; 85025; 85610; 85730; 92960; 93005; 96365; 96366; 96368; 96375; 96376; 99291; J1170; J1644; 96361; 96367